=== PATIENT | female | born 1960 | race American Indian/Alaskan Native ===

== ENCOUNTER → 2024-09-18 | Outpatient (CLI) | payer MEDICARE, MEDICAID, SELFPAY ==
--- NOTE | 2024-09-18 10:30 | XR_ITS ---
Examination: Abdomen sonogram, Limited Date and time of exam: September 18, 2024 1109 hours INDICATIONS: Elevated liver enzymes on laboratory examination 2 months ago Technique: Real-time rolon scale transabdominal sonographic images of the upper abdomen obtained. Findings: Multiple gallstones Normal gallbladder wall 0.2 cm Normal common bile duct 0.4 cm Pancreatic head 2.9 cm Liver 11.7 cm irregular contour no focal liver lesions Normal hepatopedal portal venous flow Patent IVC IMPRESSION: Cholelithiasis, negative for cholecystitis Suspect primary hepatocellular disease
== END | disposition home or self-care (01) ==
PROVIDERS: PCP Internal Medicine; Referring Provider Internal Medicine; Visit Provider Internal Medicine
DX: K80.20 Calculus of gallbladder without cholecystitis without obstruction (principal)
CPT/HCPCS: 76705

== ENCOUNTER → 2025-03-26 | Outpatient (CLI) | payer MEDICARE, MEDICAID, SELFPAY ==
--- NOTE | 2025-03-26 16:25 | XR_ITS ---
EXAMINATION: PA lateral chest 2 views TECHNIQUE: Upright PA lateral chest 2 views Date and time: March 26, 2025, 1639 hours, comparison May 10, 2009 INDICATIONS: Cardiac palpitations beginning 1 day ago FINDINGS: Mild prominence left ventricle Ectatic thoracic aorta. No pneumonia or pulmonary edema. Moderate osteopenia IMPRESSION: Mild prominence left ventricle Minor prominence central pulmonary arteries. No pneumonia or pulmonary edema
== END | disposition home or self-care (01) ==
PROVIDERS: PCP Nurse Practitioner Family; Referring Provider Nurse Practitioner Family; Visit Provider Nurse Practitioner Family
DX: I77.89 Other specified disorders of arteries and arterioles (principal); I51.7 Cardiomegaly
CPT/HCPCS: 71046